=== PATIENT | female | born 1955 ===

== ENCOUNTER 2019-04-04 05:00 | Day surgery (SDC) | payer OTHER ==
[~2019-04-04 05:00] MED LIST: ASA81 MG PO; BACLOFEN10 MG PO; CANDESARTAN-HC1 EACH PO; CRESTOR40 MG PO; DOLOGEN 325-11 EACH PO; LEVO-T150 MCG PO; SINGULAIR 10MG10 MG PO; VITAMIN D33000 UNIT PO
== END 2019-04-04 13:00 | disposition home or self-care (01) ==
LOC: CIR.AMB 05:00
DX: H60.41 Cholesteatoma of right external ear (principal)